=== PATIENT | female | born 1950 | race African-American/Black ===

== ENCOUNTER 2020-08-01 04:50 | Day surgery (SDC) | payer OTHER ==
[2020-07-31 14:07] VITALS: BMI 34.2
[2020-08-01] MEDS ORDERED: PROPOFOL 20 ML ONE (07:25)
[2020-08-01] MEDS ORDERED: MIDAZOLAM HCL 2 MG/2 ML SINGLE DOSE VIAL ONE (07:25)
[2020-08-01] MEDS ORDERED: SEVOFLURANE 250 ML BTL ONE (07:28)
--- NOTE | 2020-08-01 07:29 | HP ---
History & Physical Update - History History: No Change - Physical Physical: No Change - Assessment Assessment: No Change - Plan Plan: No Change (Consent signed and witnessed all questions answered)
--- NOTE | 2020-08-01 07:29 | OP ---
Operative Note - Note: Operative Date: 08/01/20 Pre-Operative Diagnosis: 69yo P1 with thick endometrium Operation: Hysteroscopy, D&C Findings: Stenotic cervix Blood in the endometrial canal Scared Endometrium Perforation with Hysteroscope without any force applied, very thin uterine wall Surgeon: Kenia Lloyd Anesthesiologist/[employer] [place]: Ketan East Anesthesia: MAC Specimens Removed: Endometrial curettings Estimated Blood Loss (mls): 10 Instrument used (Debridements only): Symphion Hysteroscope Drains & Tubes with Location: Fluid deficit 50cc Drains, Volume Out (mls): 10 Fluid Volume Replaced (mls): 500 Operative Report Dictated: Yes
[2020-08-01] MEDS ORDERED: IBUPROFEN 800 MG/8 ML IJ IVPB PRN (07:30)
[2020-08-01] MEDS ORDERED: IBUPROFEN 600 MG TABLET (FP) PO PRN (07:30)
[2020-08-01] MEDS ORDERED: oxyCODONE HCL 5 MG TABLET PO PRN (07:30)
[2020-08-01] MEDS ORDERED: ELECTROLYTE-148 SOLN 1,000 ML IV SCH (07:30)
[2020-08-01] MEDS ORDERED: ONDANSETRON 4 MG/2 ML VIAL IVPUSH PRN (07:30)
[2020-08-01] MEDS ORDERED: LACTATED RINGERS SOLUTION 1,000 ML IV SCH (09:45)
[2020-08-01 15:22] VITALS: BP 135/61; PULSE 71; TEMP 97.3
--- NOTE | 2020-08-02 11:51 | OP ---
DATE OF OPERATION: DATE OF DICTATION: 08/01/2020 PREOPERATIVE DIAGNOSIS: [id number] para 1 with thick endometrium, suspected postmenopausal bleeding. OPERATION: Hysteroscopy, dilation and curettage. FINDINGS: Stenotic cervix, blood in the endometrial canal, scarred endometrium. Perforation with hysteroscope without any force applied, was very thin uterine wall. SURGEON: Kenia Lloyd MD ANESTHESIOLOGIST: Ketan East MD ANESTHESIA: MAC. SPECIMENS: Endometrial curettings. DESCRIPTION OF THE OPERATIVE PROCEDURE: After assuring informed consent, patient was brought to the operating room where she was placed in dorsal lithotomy position. Perineum and vagina were prepped and draped in sterile fashion. Patient was preoperatively prepped with Cytotec pills, which were removed from the vagina. The Symphion hysteroscope was assembled, white balanced and primed. The Grant retractors were placed into the vagina. Cervix was visualized and articulated with single-tooth tenaculum. The cervical os was visualized, found to be completely stenotic, just a dimple. The 15-blade was used to recanalize the cervical os, and dark old blood started expressing from the uterine cavity. Subsequently, the Symphion hysteroscope was introduced into the cervical canal without any difficulty. Uterine cavity was found to be extremely scarred, without any visualization of normal landmarks. The instrument was moved slightly and very easily was found to be outside of the uterine cavity and inside the peritoneal cavity, so instrument was immediately withdrawn, and surgical curettage was performed with a No. 2 curet very gently, assessing every side of the endometrium. Subsequently, all instruments were removed from the uterine cavity. All instrument and sponge counts were correct x2. Estimated blood loss was 10 mL. Fluid deficit was 50 mL. Patient received 500 mL during the procedure through the IV fluids and drained 10 mL of urine. Patient tolerated the procedure well and was sent to the recovery room in stable condition. Miguel [id number]
--- NOTE | 2020-08-03 18:31 | PATH ---
Surgical Pathology Report Patient Name: HORACE CABRALES [facility]. Rec. #: [id number] /Age/Gender: 1950 (Age: 69) / F Account: [id number] Location: [facility] SURGICAL Taken: 08/01/2020 Received: 08/01/2020 Reported: 08/03/2020 Physicians: Kenia Lloyd M.D. Specimen(s) Received ENDOMETRIAL CURETTINGS Clinical History Benign endometrial hyperplasia Final Diagnosis ENDOMETRIAL CURETTINGS, DILATION AND CURETTAGE: STRIPS OF ENDOMETRIAL GLANDS COMPATIBLE WITH ATROPHIC ENDOMETRIUM, SCANT ENDOCERVICAL GLANDS, AND RARE OF FIBROMUSCULAR TISSUE IN A BACKGROUND OF ABUNDANT BLOOD Electronically Signed Arely Tracy M.D. Gross Description Received in formalin labeled "endometrial curettings," is a 1.2 x 0.8 x 0.2 cm aggregate of robert red soft tissue fragments admixed with blood clot. The formalin is filtered and the specimen is entirely submitted in one cassette. /[facility]08/01/2020
== END 2020-08-01 15:22 | disposition home or self-care (01) ==
LOC: JASU-SURG 04:50
PROVIDERS: ATTEND Obstetrics & Gynecology
PROC: 0UDB7ZX Extraction of Endometrium, Via Natural or Artificial Opening, Diagnostic (ICD-10-PCS; principal; 2020-08-01 07:30)
PROC: 0UJD8ZZ Inspection of Uterus and Cervix, Via Natural or Artificial Opening Endoscopic (ICD-10-PCS; 2020-08-01 07:30)
DX: N85.8 Other specified noninflammatory disorders of uterus (principal); N93.8 Other specified abnormal uterine and vaginal bleeding
CPT/HCPCS: 76856-TC; 82962; 88305-TC; 94760